=== PATIENT | female | born 1945 | race Caucasian/White ===

== ENCOUNTER → 2019-02-12 | Outpatient (CLI) | payer MEDICARE ==
--- NOTE | 2019-02-12 16:42 | Diagnostic Imaging Report ---
INDICATION: Left lower quadrant abdominal pain. COMPARISON: None FINDINGS: Two supine radiographs of the abdomen were obtained. Small bowel loops are nondistended. There is no large collection of free intraperitoneal air. No unexpected extraosseous calcifications or radiopaque foreign bodies are seen. Bony structures show no gross acute abnormalities. IMPRESSION: 1. Nonobstructive small bowel gas pattern. Dictated by: Dictated on workstation # [id number]
== END ==
LOC: RAD FS 16:03
PROVIDERS: ATTEND Physician Assistant
DX: R10.32 Left lower quadrant pain (principal)
CPT/HCPCS: 74018

== ENCOUNTER 2019-05-26 11:30 | Outpatient (CLI) | payer MEDICARE ==
[~2019-05-26] VITALS: Ht 152.4 cm; Wt 83.0 kg
[~2019-05-26 11:30] MED LIST: ALPR0.5T PO; ASPI-586 PO; ATEN25TA PO; CYAN-41 PO; FURO-125 PO; GABA-488 PO; HYDR-3812 PO; LEVO137T2 PO; LISI10TA2 PO; MELO15TA39 PO; METF-399 PO; OMG1KC PO; PANT40TA2 PO; POTA10TA10 PO; SIMV40TA4 PO
== END 2019-05-26 12:12 | disposition home or self-care (01) ==
LOC: PREOP 11:30
PROVIDERS: ATTEND Surgery
DX: Z01.818 Encounter for other preprocedural examination (principal)

== ENCOUNTER 2019-05-29 10:40 | Day surgery (SDC) | payer MEDICARE ==
[~2019-05-29] VITALS: Ht 152.4 cm; Wt 83.0 kg
[2019-05-29] VITALS (16 sets, daily range): BP systolic 119–167; BP diastolic 52–83
[2019-05-29] MEDS ORDERED: NS IV 500 ML 500 ML ONE (10:42)
[2019-05-29] MEDS ORDERED: NS IV 500 ML 500 ML IV PRN (10:49)
[2019-05-29] MEDS ORDERED: MIDAZOLAM 2 MG/2 ML (VERSED) VIAL IVP ONE (11:00)
[2019-05-29] MEDS ORDERED: LIDOCAINE JELLY 2% 6 ML SYRINGE MM PRN (11:00)
[2019-05-29] MEDS ORDERED: fentaNYL INJECTION 100 MCG/2 ML AMP IVP ONE (11:00)
[2019-05-29] MEDS ORDERED: LIDOCAINE JELLY 2% 6 ML SYRINGE ONE (11:33)
[2019-05-29] MEDS ORDERED: MIDAZOLAM 2 MG/2 ML (VERSED) VIAL ONE ×3 (11:33)
[2019-05-29] MEDS ORDERED: fentaNYL INJECTION 100 MCG/2 ML AMP ONE ×2 (11:33)
--- NOTE | 2019-05-29 11:33 | Conscious Sedation/ASA ---
Conscious Sedation Pre-Proced Time 10:30 ASA Score 3 For ASA 3 and 4: Consider anesthesia and medical clearance. Also, for patients with a history of failed moderate sedation consider anesthesia. Airway Lungs Heart ASA score ASA 1: a normal healthy patient ASA 2: a patient with a mild systemic disease (mid diabetes, controlled hypertension, obesity ASA 3: a patient with a severe systemic disease that limits activity (angina, COPD, prior Myocardial infarction) ASA 4: a patient with an incapacitating disease that is a constant threat to life (CHF, renal failure) ASA 5: a moribund patient not expected to survive 24 hrs. (ruptured aneurysm) ASA 6: a declared brain- patient whose organs are being harvested. For emergent operations, add the letter E after the classification Mallampati Classification Grade 2 Sedation Plan Analgesia, Amnesia, Plan communicated to team members, Discussed options with patient/fam, Discussed risks with patient/fam The patient is an appropriate candidate to undergo the planned procedure, sedation, and anesthesia. The patient immediately re-assessed prior to indication. DANIELLE LOPEZ MD May 29, 2019 11:33
--- NOTE | 2019-05-29 11:33 | Progress Note-Pre Operative ---
Pre-Operative Progress Note H&P Reviewed The H&P was reviewed, patient examined and no changes noted. Date Seen by Provider: May 29, 2019 Time Seen by Provider: 10:30 Date H&P Reviewed: May 29, 2019 Time H&P Reviewed: 10:30 Pre-Operative Diagnosis: screening colonoscopy DANIELLE LOPEZ MD May 29, 2019 11:33
--- NOTE | 2019-05-29 11:35 | Discharge Inst-Surgical ---
D/C Lap Instructions-JESSICA Follow Up Activity as tolerated High Fiber Diet 25g or more per day Avoid Alcohol, Caffeine, Spicy [place] and Acid foods. Drink 64 fluid oz or more of fluids per day. Symptoms to Report: Fever over 101 degree F, Nausea/Vomiting If any problems/questions: Contact your physician or go to Emergency Room DANIELLE LOPEZ MD May 29, 2019 11:35
[2019-05-29] MEDS ORDERED: morphine INJ 10 MG/ML 1ML (SYR OR VIAL) IVP PRN ×2 (11:45)
[2019-05-29] MEDS ORDERED: ONDANSETRON 4 MG/2 ML (SDV) Z0FRAN IVP PRN (11:45)
[2019-05-29] MEDS ORDERED: ACETAMINOPHEN 325 MG TABLET PO PRN (11:45)
[2019-05-29] MEDS ORDERED: HYDROcodone/APAP 5 MG/325 MG (LORTAB) TAB PO PRN (11:45)
--- OUTSIDE RECORDS SUMMARY | 2019-05-29 12:08 | XMS REPORT | Continuity of Care Document ---
Author Organization Unknown Address Unknown Phone Unavailable Allergies Active Description Code Type Severity Reaction Onset Reported/Identified Relationship to Patient Clinical Status Yes metronidazole [id number] Drug Allergy Mild RASH 05/26/2019 Yes Sulfa (Sulfonamide Antibiotics) [id number] Drug Allergy Mild RASH 05/26/2019 Medications There is no data. Problems Date Dx Coded Attending Type Code Diagnosis Diagnosed By 02/13/2019 NIK DUMONT Ot R10.32 LEFT LOWER QUADRANT PAIN 02/18/2019 NIK DUMONT Ot R10.32 LEFT LOWER QUADRANT PAIN 02/23/2019 NIK DUMONT Ot R10.32 LEFT LOWER QUADRANT PAIN 05/26/2019 DANIELLE LOPEZ MD Ot Z01.818 ENCOUNTER FOR OTHER PREPROCEDURAL EXAMIN 05/26/2019 DANIELLE LOPEZ MD Ot Z01.818 ENCOUNTER FOR OTHER PREPROCEDURAL EXAMIN 05/26/2019 DANIELLE LOPEZ MD Ot Z01.818 ENCOUNTER FOR OTHER PREPROCEDURAL EXAMIN 05/26/2019 DANIELLE LOPEZ MD Ot Z01.818 ENCOUNTER FOR OTHER PREPROCEDURAL EXAMIN Procedures There is no data. Results Test Result Range MICROALBUMIN/CREATININE RATIO, URINE - 04/14/19 08:35 CREATININE, RANDOM URINE 78 mg/dL 20-275 MICROALBUMIN 10.8 mg/dL See Note: MICROALBUMIN/CREATININE RATIO, RANDOM URINE 138 mcg/mg creat <30 A1C - 04/14/19 08:35 HEMOGLOBIN A1c 8.0 % of total Hgb <5.7 PDM - 09 PANEL (PROFILE 1) - 04/16/19 15:52 Prescribed Drug 1 Xanax(TM) NRG Creatinine 135.6 mg/dL > or=20.0 pH 5.84 4.5 - 9.0 Oxidant NEGATIVE mcg/mL <200 Amphetamines NEGATIVE ng/mL <500 medMATCH Amphetamines CONSISTENT NRG Benzodiazepines POSITIVE ng/mL <100 Marijuana Metabolite NEGATIVE ng/mL <20 medMATCH Marijuana Metab CONSISTENT NRG Cocaine Metabolite NEGATIVE ng/mL <150 medMATCH Cocaine Metab CONSISTENT NRG Opiates NEGATIVE ng/mL <100 medMATCH Opiates INCONSISTENT NRG Oxycodone NEGATIVE ng/mL <100 medMATCH Oxycodone CONSISTENT NRG COMMENT NRG Alphahydroxyalprazolam NEGATIVE ng/mL <25 medMATCH aOH alprazolam INCONSISTENT NRG Alphahydroxymidazolam NEGATIVE ng/mL <50 medMATCH aOH midazolam CONSISTENT NRG Alphahydroxytriazolam NEGATIVE ng/mL <50 medMATCH aOH triazolam CONSISTENT NRG Aminoclonazepam NEGATIVE ng/mL <25 medMATCH Aminoclonazepam CONSISTENT NRG Hydroxyethylflurazepam NEGATIVE ng/mL <50 medMATCH OH,Et flurazepam CONSISTENT NRG Lorazepam 981 ng/mL <50 medMATCH Lorazepam INCONSISTENT NRG Nordiazepam NEGATIVE ng/mL <50 medMATCH Nordiazepam CONSISTENT NRG Oxazepam NEGATIVE ng/mL <50 medMATCH Oxazepam CONSISTENT NRG Temazepam NEGATIVE ng/mL <50 medMATCH Temazepam CONSISTENT NRG Prescribed Drug 2 Hydrocodone NRG Barbiturates NEGATIVE ng/mL <300 medMATCH Barbiturates CONSISTENT NRG Methadone Metabolite NEGATIVE ng/mL <100 medMATCH Methadone Metab CONSISTENT NRG Phencyclidine NEGATIVE ng/mL <25 medMATCH Phencyclidine CONSISTENT NRG Encounters ACCT No. Visit Date/Time Discharge Status Pt. Type Provider Facility Loc./Unit Complaint [id number] 04/16/2019 15:30:00 04/16/2019 23:59:59 [facility] Outpatient [facility] [id number] 04/16/2019 15:30:00 Document Registration [id number] 04/14/2019 08:15:00 Document Registration [id number] 05/26/2019 11:30:00 05/26/2019 12:12:00 DIS Outpatient DANIELLE LOPEZ MD [facility] PREOP COLONOSCOPY [id number] 02/12/2019 16:03:00 02/12/2019 23:59:59 CLS Outpatient NIK DUMONT [facility] RAD FS R10.32 [id number] 05/29/2019 12:45:00 PEN Preadmit DANIELLE LOPEZ MD [facility] ENDO SCREENING/PERSISTENT DIARRHEA
--- OUTSIDE RECORDS SUMMARY | 2019-05-29 12:08 | XMS REPORT ---
Author Author BETH ABBOTT Organization [facility] Address [address] [place] [address] Care Team Providers Care Analytical Lab Technician Name Role Phone BETH ABBOTT Unavailable PROBLEMS Type Condition ICD9-CM Code RIW52-GO Code Onset Dates Condition Status SNOMED Code Problem Mortons neuroma G57.60 Jun, 0 71062490 Problem Severe obesity (BMI 35.0-39.9) with comorbidity 278.01 February, 0 287449325 Problem Postop check V67.00 Oct, 0 478905444 Problem Postop check Z09 Oct, 0 992535440 Problem Severe obesity (BMI 35.0-39.9) with comorbidity E66.01 February, 0 525630790 Problem Type 2 diabetes mellitus E11.9 February, 0 93567129 Problem 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 0 17737068 Problem Hiatal hernia 553.3 Apr, 0 59784048 Problem Triceps strain 840.8 Nov, 0 Problem Type 2 diabetes mellitus 250.00 February, 0 68254016 Problem Mortons neuroma 355.6 Jun, 0 55355202 Problem Triceps strain S46.319A Nov, 0 Problem Essential hypertension I10 0 60752863 Problem Esophageal reflux K21.9 0 471830742 Problem Obesity (BMI 30.0-34.9) E66.9 May, 0 555655629 Problem Hyperlipidemia E78.5 May, 0 92682308 Problem Hypothyroidism E03.9 0 67641486 Problem CAD (coronary artery disease) I25.10 0 31634905 Problem Rotator cuff tear, right 840.4 Nov, 0 [id number] Problem Asthma J45.909 February, 0 062593050 Problem Chest pain 786.50 Jul, 0 43814356 Problem Essential hypertension 401.9 0 35335072 Problem Hypothyroidism 244.9 0 14970106 Problem Esophageal reflux 530.81 0 279958563 Problem Hiatal hernia K44.9 Apr, 0 36035829 Problem Diffuse cystic mastopathy 610.1 0 67729443 Problem Rotator cuff tear, right M75.101 28 Nov, 2013 0 [id number] Problem Chest pain R07.9 14 Jul, 2013 0 55717188 Problem Obesity (BMI 30.0-34.9) 278.00 May, 0 777642684 Problem CAD (coronary artery disease) 414.00 0 41623240 Problem Asthma 493.90 07 Feb, 2009 0 842670760 Problem Hyperlipidemia 272.4 May, 0 79929619 ALLERGIES No Information ENCOUNTERS Encounter Location Date Diagnosis [address] [address] February, [address] [address] February, [address] [address] Jan, [address] [address] Jan, Left lower quadrant pain R10.32 and History of diverticulitis Z87.[address] [address] Jan, [address] [address] Jan, [facility] [address] [place] [address] Jan, Nasopharyngitis J00 ; Gastroenteritis K52.9 and Body aches R52 [address] [address] Dec, [address] [address] Nov, [address] [address] Nov, [facility] [address] [facility] [place] [id number] [place] [address] Sep, [facility] [address] [facility] [place] [id number] [place] [address] Sep, [facility] [address] [facility] [place] [id number] [place] [address] Sep, [facility] [address] [facility] [place] [id number] [place] [address] Sep, [facility] [address] [facility] [place] [id number] [place] [address] Jan, IMMUNIZATIONS No Known Immunizations SOCIAL HISTORY Never Assessed REASON FOR VISIT Controlled Med Refill 12/26 PLAN OF CARE VITAL SIGNS MEDICATIONS Medication Instructions Dosage Frequency Start Date End Date Duration Status Hydrocodone-Acetaminophen 5-325 MG Orally 4 times a day 1 tablet as needed 6h Dec, 28 days Active RESULTS No Results PROCEDURES No Known procedures INSTRUCTIONS MEDICATIONS ADMINISTERED No Known Medications MEDICAL (GENERAL) HISTORY Type Description Date Medical History esophageal reflux Medical History hyperlipidemia Medical History asthma Medical History CAD Medical History hypothyroidism Medical History essential htn Medical History hiatal hernia Medical History cervical cancer Surgical History tonsillectomy Surgical History cholecystectomy Surgical History hysterectomy Surgical History colonoscopy Surgical History EGD Surgical History shoulder surgery, right Surgical History breast biopsy, left Surgical History stent right leg Surgical History skin graft, left ear Hospitalization History surgeries Hospitalization History diverticulitis Hospitalization History stent placed right leg 2006
--- NOTE | 2019-05-29 12:26 | Progress Note-Post Operative ---
Post-Operative Progess Note Surgeon (s)/Manager Employee Relations (s) Surgeon DANIELLE LOPEZ MD Manager Employee Relations: none Pre-Operative Diagnosis screening colonoscopy Post-Operative Diagnosis chronic stage 2 ext and int hemorrhoids. Procedure & Operative Findings Date of Procedure 05/29/19 Procedure Performed/Findings colonoscopy Anesthesia Type cs Estimated Blood Loss Estimated blood loss (mL): minimal Specimens/Packing Specimens Removed none DANIELLE LOPEZ MD May 29, 2019 12:26
--- NOTE | 2019-05-29 21:00 | OPERATIVE REPORT ---
DATE OF SERVICE: 05/29/2019 ATTENDING PRIMARY CARE PHYSICIAN: Dr. Mcdaniels. PREOPERATIVE DIAGNOSIS: Screening colonoscopy. POSTOPERATIVE DIAGNOSES: Chronic stage II external and internal hemorrhoids. Remainder of the rectum and colon were normal. PROCEDURE: Colonoscopy. SURGEON: Danielle Lopez MD ANESTHESIA: Conscious sedation. ESTIMATED BLOOD LOSS: Minimal. FINDINGS: Chronic stage II external and internal hemorrhoids. Remainder of the rectum and colon were normal. DISPOSITION: The patient tolerated the procedure well. INDICATION: The patient is a 74-year-old female referred over to us for screening colonoscopy. Her last colonoscopy was 5 years ago and she believes she did have polyps that were biopsied and found to be benign. She did not report any family history of colon cancer as well as no red blood per rectum nor any dark tarry stools. She does report that she is having intermittent episodes of crampy abdominal pain as well as diarrhea; however, this may be diet related. DESCRIPTION OF PROCEDURE: The patient was brought to the endoscopy suite, laid in the left lateral decubitus position. After adequate IV pain and sedating medications and conscious sedation anesthesia, a digital rectal examination was performed, which revealed mild chronic stage II external and internal hemorrhoids, not actively edematous nor inflamed and no bleeding. Normal sphincter tone was felt and there were no palpable masses. The endoscope was then intubated to the anus and rectum gently insufflated. The endoscope was then advanced through the valves of Ferguson of the rectum with no polyps or any neoplasms identified. There were no mucosal inflammatory changes to indicate any proctitis. The endoscope was then advanced through the sigmoid colon where no diverticulosis identified. The endoscope was then advanced to the remainder of the descending, transverse and ascending colon to the cecum. These segments were normal. There were no polyps or any neoplasms identified throughout the colon or rectum as well as no mucosal inflammatory changes to indicate any active colitis. The endoscope was then slowly withdrawn while taking a second look and suctioning of residual air with no additional findings. The patient tolerated the procedure well. We will recommend medical management with dietary changes including small and more frequent meals, avoiding to eating at night as well as head elevation. We will also recommend avoidance of caffeinated beverages, spicy, greasy and acidic foods, which may increase peristaltic activity. We will also have her decrease or even proceed with cessation of milk and milk products due to potential development of lactose intolerance. We will also recommend a high fiber diet with at least 25 grams of fiber from the supplemental basis to help solidify her stools when she has diarrhea; however, also proceed with softening stools during episodes of constipation. Job ID: [id number] DocumentID: [id number] Dictated Date: 05/29/2019 12:15:47 Health Manager Date: 05/29/2019 20:59:07 Dictated By: DANIELLE LOPEZ MD
== END 2019-05-29 13:00 | disposition home or self-care (01) ==
LOC: ENDO 10:40
PROVIDERS: ATTEND Surgery
DX: Z12.11 Encounter for screening for malignant neoplasm of colon (principal); K64.1 Second degree hemorrhoids; Z86.010 Personal history of colon polyps; E11.9 Type 2 diabetes mellitus without complications; I10 Essential (primary) hypertension; K21.9 Gastro-esophageal reflux disease without esophagitis; J45.909 Unspecified asthma, uncomplicated; I25.10 Atherosclerotic heart disease of native coronary artery without angina pectoris; E03.9 Hypothyroidism, unspecified; Z85.41 Personal history of malignant neoplasm of cervix uteri; Z79.899 Other long term (current) drug therapy; Z79.82 Long term (current) use of aspirin; Z80.49 Family history of malignant neoplasm of other genital organs; Z80.52 Family history of malignant neoplasm of bladder
CPT/HCPCS: 82962

== ENCOUNTER → 2020-03-18 | Outpatient (CLI) | payer MEDICARE ==
[~2020-03-18] VITALS: Ht 152 cm; Wt 79.0 kg
[~2020-03-18] MED LIST changes: +ACHD5005 PO; +CATHETER FLUSH 10 ML SYR IV PRN; -HYDR-3812 PO; +REGADENOSON 0.4 MG/5 ML SYR (LEXISCAN) IV ONE; +SIMV40TA25 PO; -SIMV40TA4 PO
--- NOTE | 2020-03-18 15:58 | STRESS TEST ---
DATE OF SERVICE: RESTING AND POST REGADENOSON TECHNETIUM-99M TETROFOSMIN SPECT CT IMAGING ORDERING PHYSICIAN: Dr. Skinner. PRIMARY PHYSICIAN: Dr. Mcdaniels. CLINICAL DIAGNOSIS: Coronary artery disease. Baseline images were carried out after injection of 10.88 mCi of technetium-99m Tetrofosmin. This was followed by 0.4 mg regadenoson and 32.4 mCi of technetium-99m Tetrofosmin for stress imaging. The electrocardiogram showed sinus tachycardia. It did not change significantly with regadenoson infusion. She tolerated the procedure well. Review of images at rest and following stress does not indicate any significant perfusion defects consistent with myocardial ischemia or infarction. Gated images show normal global left ventricular systolic function with normal regional wall motion. Left ventricular ejection fraction is calculated to be 68%. TID is absent (0.94). CONCLUSIONS: 1. No evidence of any significant myocardial ischemia or infarction on this study. 2. Normal regional wall motion. 3. Normal global left ventricular systolic function with a calculated ejection fraction of 68%. Job ID: [id number] DocumentID: [id number] Dictated Date: 03/18/2020 12:37:46 Hearing Health Technician Date: 03/18/2020 15:57:52 Dictated By: BESSY SKINNER MD, MA, FACP, FACC,
== END ==
LOC: CARD 07:28
PROVIDERS: ATTEND Internal Medicine Cardiovascular Disease
DX: I25.10 Atherosclerotic heart disease of native coronary artery without angina pectoris (principal); E11.9 Type 2 diabetes mellitus without complications; E78.5 Hyperlipidemia, unspecified; I10 Essential (primary) hypertension
CPT/HCPCS: 78452; 93017

== ENCOUNTER → 2020-04-11 | Outpatient (CLI) | payer MEDICARE ==
[~2020-04-11] MED LIST changes: -CATHETER FLUSH 10 ML SYR IV PRN; -REGADENOSON 0.4 MG/5 ML SYR (LEXISCAN) IV ONE
== END ==
LOC: CARD 09:56
PROVIDERS: ATTEND Internal Medicine Cardiovascular Disease
DX: I25.10 Atherosclerotic heart disease of native coronary artery without angina pectoris (principal); E11.9 Type 2 diabetes mellitus without complications; E78.5 Hyperlipidemia, unspecified; I11.9 Hypertensive heart disease without heart failure; I35.1 Nonrheumatic aortic (valve) insufficiency
CPT/HCPCS: 93306

== ENCOUNTER → 2022-04-10 | Outpatient (CLI) | payer MEDICARE, OTHER ==
[~2022-04-10] MED LIST changes: +CATHETER FLUSH 10 ML SYR IVP PRN; -LISI10TA2 PO; +LISI10TA25 PO; +REGADENOSON 0.4 MG/5 ML SYR (LEXISCAN) IV ONE
[2022-04-10 09:43] VITALS: BP 163/68
== END ==
LOC: CARD 08:00
PROVIDERS: ATTEND Internal Medicine Cardiovascular Disease
DX: I25.10 Atherosclerotic heart disease of native coronary artery without angina pectoris (principal)
CPT/HCPCS: 78452; 93017; A9502